=== PATIENT | female | born 1990 ===

== ENCOUNTER 2025-02-19 08:00 | Outpatient (CLI) | payer OTHER | END 2025-02-19 09:52 | disposition home or self-care (01) | LOC: ULT 08:00 | PROVIDERS: ATTEND Family Medicine | DX: O09.892 Supervision of other high risk pregnancies, second trimester (principal); O32.9XX0 Maternal care for malpresentation of fetus, unspecified, not applicable or unspecified; Z3A.22 22 weeks gestation of pregnancy | CPT/HCPCS: 76805 ==